=== PATIENT | female | born 1965 | race Two or more races ===

== ENCOUNTER 2016-08-31 15:32 | Emergency (ER) | payer OTHER ==
[~2016-08-31 15:32] MED LIST: ACID CONTROL20 MG PO; CARAFATE1 G PO; FLAGYL PO; FLEXERIL PO; FLEXERIL10 MG PO; PEPCID PO; PHENERGAN25 MG PO; TETRACYCLINE PO; VICODIN 5/500 T1 TAB PO
== END 2016-08-31 16:35 | disposition home or self-care (01) ==
LOC: CED 15:32 → CFTX 15:32
DX: M54.2 Cervicalgia (principal); G89.29 Other chronic pain; I10 Essential (primary) hypertension
CPT/HCPCS: 99283